=== PATIENT | female | born 1985 | race American Indian/Alaskan Native ===

== ENCOUNTER 2017-06-17 18:30 | Emergency (ER) | payer OTHER ==
[~2017-06-17] VITALS: Ht 162.6 cm; Wt 72.6 kg
[~2017-06-17 18:30] MED LIST: OMEPRAZOLE40 MG PO; PROMETHAZINE HC25 M1 PO; REGLAN10 MG PO; VITAMIN D5000 UNIT PO; ZOFRAN ODT4 MG SL
== END 2017-06-17 21:30 | disposition home or self-care (01) ==
LOC: ED 18:30
DX: J11.1 Influenza due to unidentified influenza virus with other respiratory manifestations (principal); F41.9 Anxiety disorder, unspecified; F32.9 Major depressive disorder, single episode, unspecified; Z79.899 Other long term (current) drug therapy
CPT/HCPCS: 96372; 96374; 99282; J1885; J2550; J7030

== ENCOUNTER 2020-08-27 14:46 | Emergency (ER) | payer OTHER ==
[~2020-08-27] VITALS: Ht 162.6 cm; Wt 90.7 kg
[2020-08-27] MEDS ORDERED: ZOFRAN4 MG PO (18:31)
== END 2020-08-27 18:46 | disposition home or self-care (01) ==
LOC: ED 14:46
DX: R10.13 Epigastric pain (principal); E86.0 Dehydration; R11.2 Nausea with vomiting, unspecified; Z87.891 Personal history of nicotine dependence; Z79.899 Other long term (current) drug therapy
CPT/HCPCS: 36415; 80053; 81001; 83690; 83735; 84703; 85025; 96374; 96375; 99284-25; J1885; J2405; J7030

== ENCOUNTER 2020-10-12 16:29 | Emergency (ER) | payer OTHER ==
[~2020-10-12] VITALS: Ht 162.6 cm; Wt 90.7 kg
[~2020-10-12 16:29] MED LIST changes: +ZOFRAN4 MG PO
--- OUTSIDE RECORDS SUMMARY | 2020-10-12 16:32 | XMS ---
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 Ana Lilia has no Care Guidelines for this patient. Kelvin VISIT COUNT (12 MO.) 2 JACKY Turcios TOTAL 2 NOTE: Visits indicate total known visits. 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
== END 2020-10-12 21:50 | disposition home or self-care (01) ==
LOC: ED 16:29
DX: K59.00 Constipation, unspecified (principal)
CPT/HCPCS: 74177; 80053; 81001; 83690; 84703; 85025; 96375; 96376; 99284-25; C9113; J1170; J2405; J7030

== ENCOUNTER 2021-07-31 11:28 | Emergency (ER) | payer OTHER ==
[~2021-07-31] VITALS: Ht 160 cm; Wt 77.1 kg
--- OUTSIDE RECORDS SUMMARY | 2021-07-31 11:30 | XMS ---
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 Care History Medical/Surgical 10/15/2020 [facility] - PATIENT IS [facility] ELIGIBLE, \T\middot;\T\nbsp; PLEASE REFER PATIENT TO [facility] FOR NON EMERGENT MEDICAL NEEDS. \T\middot;\T\nbsp; [facility] CAN SEE PATIENTS SAME DAY FOR APTS IF PATIENT CALLS FIRST THING IN THE MORNING. E.D. VISIT COUNT (12 MO.) [address] [place] [address] TOTAL 3 NOTE: Visits indicate total known visits. ED/UCC VISIT TRACKING (12 MO.) 07/31/2021 11:29 [facility] TYPE: Emergency COMPLAINT: - N/V/D, FEVER, SWEATS/CHILLS 10/12/2020 16:30 [facility] TYPE: Emergency COMPLAINT: - ABD PAIN, N/V DIAGNOSES: - Constipation, unspecified 08/27/2020 14:47 [facility] TYPE: Emergency COMPLAINT: - VOMITING,NAUSEA DIAGNOSES: - Nausea with vomiting, unspecified - Dehydration - Personal history of nicotine dependence - Other correction (current) drug therapy - Epigastric pain INPATIENT VISIT TRACKING (12 MO.) No inpatient visits to display in this time frame [email or web address]
[2021-07-31] MEDS ORDERED: ONDANSETRON ODT8 MG PO (17:39)
== END 2021-07-31 18:00 | disposition home or self-care (01) ==
LOC: ED 11:28
DX: R10.9 Unspecified abdominal pain (principal); R11.2 Nausea with vomiting, unspecified; R19.7 Diarrhea, unspecified; E87.6 Hypokalemia; Z79.899 Other long term (current) drug therapy; Z20.822 Contact with and (suspected) exposure to COVID-19
CPT/HCPCS: 36415; 74177; 80053; 81001; 83690; 84703; 85025; 96375; 96376; 99284-25; A9270; C9803; J1790; J2765; J7030; J7042; Q9967; U0003